=== PATIENT | male | born 1995 | race Caucasian/White ===

== ENCOUNTER 2017-07-13 01:13 | Emergency (ER) | END 2017-07-13 03:56 | disposition left against medical advice (07) ==

== ENCOUNTER 2018-12-04 21:27 | Emergency (ER) | payer OTHER ==
[~2018-12-04] VITALS: Ht 188 cm; Wt 90.0 kg
[~2018-12-04 21:27] MED LIST: IBUP-1542 PO
[2018-12-04 21:30] VITALS: Ht 188 cm; Wt 90.0 kg
[2018-12-04] MEDS ORDERED: DIPHTH/TET/ACEL PERTUSS (ADULT) 0.5 ML VIAL IM* ONE (22:00)
[2018-12-04] MEDS ORDERED: IBUPROFEN 600 MG TAB PO ONE (22:00)
[2018-12-04 22:18] VITALS: BP 138/67; PULSE 76; RESP 18
== END 2018-12-04 22:19 | disposition home or self-care (01) ==
LOC: E/R 21:27
DX: S99.921A Unspecified injury of right foot, initial encounter (principal); F17.210 Nicotine dependence, cigarettes, uncomplicated; W22.8XXA Striking against or struck by other objects, initial encounter; Y92.832 Beach as the place of occurrence of the external cause; Z23 Encounter for immunization
CPT/HCPCS: 90471; 90715; Z7502; Z7610